=== PATIENT | female | born 1950 | race Caucasian/White ===

== ENCOUNTER → 2017-04-16 | Day surgery (SDC) | payer MEDICARE ==
[~2017-04-16] VITALS: Ht 170.2 cm; Wt 51.7 kg
[~2017-04-16] MED LIST: ASPI81TA11 PO; CALC600T25 PO; CHLORHEXIDINE GLUCONATE 2 % 1 PACK (2 CLOTHS) TOPICAL PRN; D400400C PO; DO NOT ADM ANY ANTICOAGULANT DRUGS PRN; EPINEPHrine HCL (1:1000) 1 MG/ML VIAL ONE; FLEC1TAB8 PO; GLUC15002 PO; INSULIN HUMAN REGULAR 1,000 UNITS/10 ML VIAL SQ PRN; LACTATED RINGER'S 1000 ML IV PRN; LEVO50TA4 PO; LIDOCAINE HCL 2% 100 MG/5 ML SYRINGE ONE; LIDOCAINE HCL 2% PF SOLN 10 ML VIAL ONE; LIOT5TAB3 PO; METOPROLOL TARTRATE 25 MG TAB PO PRN; MIDAZOLAM HCL 2 MG/2 ML VIAL ONE; MULTTAB25 PO; OMEG12007 PO; POVIDONE IODINE 5% (ANTISEPSIS KIT) 4 APPLICATIONS EACH NARE PRN; PROPOFOL 200 MG/20 ML AMP IV ONE; RESP: ALBUTEROL 2.5 MG/3 ML NEB (SCH) INH; RESP: LIDOCAINE HCL 4% PF 5 ML NEB NEB SCH; SODIUM CHLOR 0.45% 1000 ML INJ 1,000 ML IV SCH; SODIUM CHLORID 0.9% 500 ML IV PRN
[2017-04-16 06:29] VITALS: BP 133/60; PULSE 47; RESP 16; TEMP 98; O2SAT 96
[2017-04-16 06:41] LABS: AUTOMATED NEUTROPHIL # 1.6 TH/MM3 (1.8-7.7); BASOPHIL # 0.1 TH/MM3 (0-0.2); BASOPHIL % 1.4 % (0.0-2.0); EOSINOPHIL # 0.1 TH/MM3 (0-0.4); EOSINOPHIL % 2.3 % (0.0-4.0); HEMATOCRIT 38.9 % (35.0-46.0); HEMO FLAGS DIFF FINAL; LYMPHOCYTE # 1.3 TH/MM3 (1.0-4.8); MEAN CELL VOLUME 92.6 FL (80.0-100.0); MEAN CORPUSCULAR HEMOGLOBIN 30.6 PG (27.0-34.0); NEUT % 46.3 % (16.0-70.0); PLATELET COUNT 187 TH/MM3 (150-450); RED BLOOD COUNT 4.21 MIL/MM3 (4.00-5.30); RED CELL DISTRIBUTION WIDTH 13.8 % (11.6-17.2); WHITE BLOOD COUNT 3.5 TH/MM3 (4.0-11.0)
[2017-04-16 06:49] LABS: APTT (PATIENT) 25.8 SEC (24.3-30.1); PROTHROMBIN TIME - PATIENT 10.6 SEC (9.8-11.6)
--- NOTE | 2017-04-16 08:25 | MR ---
cc: HELENA MALIK M.D. DATE 04/16/2017 PROCEDURE PERFORMED Fiberoptic bronchoscopy, flexible REASON FOR BRONCHOSCOPY Bilateral lung nodules, probable chronic inflammatory process, rule out malignancy. PROCEDURE NOTE Fiberoptic bronchoscopy performed via LMA. Vocal cords intact. Trachea mildly hyperemic. Rajwinder sharp. Right mainstem bronchus, right upper, middle and lower lobes, left main bronchus, left upper and lower lobes were inspected. No obstructive pathology or mass lesion seen. Diffuse hyperemia noted. Washings obtained from both sides of the tracheobronchial tree for routine TB, fungal culture and cytological exam. Cytologic brushings right lower lobe obtained that showed some hyperemia which is more prominent than the rest of the tracheobronchial tree. The procedure was very well tolerated and the patient was transferred to the recovery room in stable condition. IMPRESSION 1. Mild to moderate tracheobronchitis 2. No obstruction, no mass lesion. 3. Samples obtained as above. 4. Procedure well tolerated. 5. The patient transferred to recovery in stable condition. Helena Malik MD WWW/KATHLEEN /8:04 AM /8:17 AM MONICA
[2017-04-16 09:48] VITALS: BP 110/68; PULSE 54; RESP 20; TEMP 96.7; O2SAT 99
--- NOTE | 2017-04-17 10:46 | EKG ---
Date Performed: 04/16/2017 Time Performed: 06:08:35 PTAGE: 67 years EKG: Sinus rhythm WITH OCCASIONAL SUPRAVENTRICULAR PREMATURE COMPLEXES BORDERLINE RIGHT AXIS DEVIATION BORDERLINE ECG NO PREVIOUS TRACING DOCTOR: Martin Garza Interpretating Date/Time 04/17/2017 10:45:05
== END | disposition home or self-care (01) ==
LOC: HSDC 05:34
PROVIDERS: ATTEND Internal Medicine Sleep Medicine
DX: R91.8 Other nonspecific abnormal finding of lung field (principal); J40 Bronchitis, not specified as acute or chronic; I48.91 Unspecified atrial fibrillation; J44.9 Chronic obstructive pulmonary disease, unspecified; E03.9 Hypothyroidism, unspecified; R06.02 Shortness of breath; Z85.3 Personal history of malignant neoplasm of breast; Z01.818 Encounter for other preprocedural examination
CPT/HCPCS: 00520; 31623; 85025; 85610; 85730; 87015; 87070; 87102; 87116; 87205; 87206; 88112; 88305; 93005; J0171; J2250; J3010; J7120

== ENCOUNTER → 2017-04-20 | Outpatient (CLI) | payer MEDICARE ==
[~2017-04-20] MED LIST changes: -CHLORHEXIDINE GLUCONATE 2 % 1 PACK (2 CLOTHS) TOPICAL PRN; -DO NOT ADM ANY ANTICOAGULANT DRUGS PRN; -EPINEPHrine HCL (1:1000) 1 MG/ML VIAL ONE; -INSULIN HUMAN REGULAR 1,000 UNITS/10 ML VIAL SQ PRN; -LACTATED RINGER'S 1000 ML IV PRN; -LIDOCAINE HCL 2% 100 MG/5 ML SYRINGE ONE; -LIDOCAINE HCL 2% PF SOLN 10 ML VIAL ONE; -METOPROLOL TARTRATE 25 MG TAB PO PRN; -MIDAZOLAM HCL 2 MG/2 ML VIAL ONE; -POVIDONE IODINE 5% (ANTISEPSIS KIT) 4 APPLICATIONS EACH NARE PRN; -PROPOFOL 200 MG/20 ML AMP IV ONE; -RESP: ALBUTEROL 2.5 MG/3 ML NEB (SCH) INH; -RESP: LIDOCAINE HCL 4% PF 5 ML NEB NEB SCH; -SODIUM CHLOR 0.45% 1000 ML INJ 1,000 ML IV SCH; -SODIUM CHLORID 0.9% 500 ML IV PRN
--- NOTE | 2017-04-22 12:48 | RSPPFT ---
DATE OF PROCEDURE: 04/20/17 COMMENTS: Spirometry with FVC of 3.4, FEV1 of 2.3, FEV1/FVC ratio at 69%. A non-significant response to acutely inhaled bronchodilator noted. TLC is 140% of predicted. Diffusion capacity is normal. IMPRESSION: 1. Moderate airways obstruction. 2. Non-significant response to inhaled bronchodilator. 3. No evidence of airways restriction. 4. Normal diffusion capacity.
== END ==
LOC: HRSP 09:38
PROVIDERS: ATTEND Internal Medicine Sleep Medicine
DX: R06.89 Other abnormalities of breathing (principal)
CPT/HCPCS: 94060; 94726; 94729